=== PATIENT | male | born 1975 | race Caucasian/White ===

== ENCOUNTER 2017-08-14 05:36 | Observation (INO) | payer BC ==
[2017-08-11 12:21] LABS: BASOPHILS % (AUTO) 0.7 % (0-1); EOSINOPHILS # (AUTO) 0.1 X10'3 (0-0.9); EOSINOPHILS % (AUTO) 2.1 % (0-6); MEAN CORPUSCULAR HEMOGLOBIN 31.6 PG (27.0-31.0); MEAN CORPUSCULAR HGB CONC 34.8 % (33.0-36.5); MEAN CORPUSCULAR VOLUME 90.8 FL (78-98); MEAN PLATELET VOLUME 10.3 FL (7.4-10.4); MONOCYTES # (AUTO) 0.4 X10'3 (0-0.9); MONOCYTES % (AUTO) 5.6 % (2-12); NEUTROPHILS # (AUTO) 3.8 X10'3 (1.8-7.7); NEUTROPHILS % (AUTO) 60.6 % (42-75); PRE OP HEMATOCRIT 43.5 % (42.0-52.0); PRE OP HEMOGLOBIN 15.1 g/dL (14.0-17.9); PRE OP PLATELET COUNT 172 X10'3 (140-440); RED BLOOD COUNT 4.79 X10'6 (4.70-6.10); RED CELL DISTRIBUTION WIDTH 14.1 % (11.5-14.5)
[2017-08-11 12:43] LABS: ALBUMIN 4.3 G/DL (3.4-5.0); ALBUMIN/GLOBULIN RATIO 1.3 (1.1-1.5); ALKALINE PHOSPHATASE 63 IU/L (46-116); BLOOD UREA NITROGEN 13 MG/DL (7-18); BUN/CREATININE RATIO 14.4 (5.4-32.0); CALCIUM 9.2 MG/DL (8.5-10.1); CHLORIDE 105 MMOL/L (99-107); PRE OP ALT 67 U/L (30-65); PRE OP ANION GAP 5 (8-16); PRE OP AST 29 U/L (10-37); PRE OP BILIRUB, TOTAL 0.6 MG/DL (0.0-1.0); PRE OP GLUCOSE 92 MG/DL (70-104); PRE OP POTASSIUM 4.1 MMOL/L (3.4-5.1); PRE OP SODIUM 141 MMOL/L (135-145); TOTAL CARBON DIOXIDE 30.8 MMOL/L (24-32); TOTAL PROTEIN 7.7 G/DL (6.4-8.2); eGFR > 90 ML/MIN
[2017-08-14] VITALS (21 sets, daily range): BP systolic 108–160; BP diastolic 55–98
[~2017-08-14] VITALS: Ht 182.9 cm; Wt 183.7 kg
[~2017-08-14 05:36] MED LIST: ATOR10TA87 PO; CITA-311 PO; L-THROXINE PO; famotidine 20mg tablet PO ONE; ringers solution, lacted 1,000 ML IV SCH
[2017-08-14] MEDS ORDERED: LIDOcaine 1% (10mg/ml) 2ml vial ONE (05:49)
[2017-08-14] MEDS ORDERED: BUPIVAcaine/PF 2.5 mg/ml (0.25%) 30ml vial ONE (07:04)
[2017-08-14] MEDS ORDERED: VANCOMYCIN INJ 1000 MG in NORMAL SALINE 250ml IV.SOLN IV ONE (07:05)
[2017-08-14] MEDS ORDERED: cefazolin/dext.iso 2gm/50ml 50 ML IV ONE (07:05)
[2017-08-14] MEDS ORDERED: sevoflurane 250ml liquid IH ONE (07:17)
[2017-08-14] MEDS ORDERED: ondansetron/PF 4mg/2ml inj ONE (07:17)
[2017-08-14] MEDS ORDERED: cloNIDine hcl/PF 100mcg/ml inj ONE (07:22)
[2017-08-14] MEDS ORDERED: fentaNYL/PF 50MCG/1 ML 2ML syringe ONE (07:24)
[2017-08-14] MEDS ORDERED: midazolam 2 mg/2 ml injection ONE ×2 (07:24→07:48)
[2017-08-14] MEDS ORDERED: ROPIVAcaine 0.5% (5mg/ml) 30ml vial ONE (07:25)
[2017-08-14] MEDS ORDERED: propofol inj 20 ML IV ONE ×2 (07:26→07:29)
[2017-08-14] MEDS ORDERED: rocuronium 10mg/ml inj IV ONE (07:26)
[2017-08-14] MEDS ORDERED: LIDOcaine 2% (20mg/ml) 5ml vial ONE (07:26)
[2017-08-14] MEDS ORDERED: ringers solution, lacted 1,000 ML IV SCH (09:32)
[2017-08-14] MEDS ORDERED: meperidine/PF 25mg/ml syringe IV PRN ×3 (09:35)
[2017-08-14] MEDS ORDERED: ondansetron/PF 4mg/2ml inj IV PRN ×2 (09:35→10:35)
[2017-08-14] MEDS ORDERED: proCHLORperazine 10 MG/2 ml inj IV PRN (09:35)
[2017-08-14] MEDS ORDERED: morphine 2 MG/ML inj. syringe IV PRN ×2 (09:35)
[2017-08-14] MEDS ORDERED: morphine 5 MG/ML injection IV PRN ×2 (09:37→09:38)
[2017-08-14] MEDS ORDERED: dexamethasone sod phosphate 4mg/ml inj. ONE (10:05)
[2017-08-14] MEDS ORDERED: diphenhydrAMINE 25mg capsule PO PRN ×2 (10:35)
[2017-08-14] MEDS ORDERED: bisacodyl 10mg suppository rectal RC PRN (10:35)
[2017-08-14] MEDS ORDERED: magnesium hydroxide 30ml (MOM) UD suspension PO PRN (10:35)
[2017-08-14] MEDS ORDERED: NORMAL SALINE IV ONE (10:35)
[2017-08-14] MEDS ORDERED: HYDROmorphone 1 mg/ml syringe IV PRN ×2 (10:35)
[2017-08-14] MEDS ORDERED: HYDROcodone/acetaminophen 10/325mg tab PO PRN (10:35)
[2017-08-14] MEDS ORDERED: acetaminophen 325mg tablet PO PRN ×2 (10:35)
[2017-08-14] MEDS ORDERED: TRANEXAMIC ACID IV ONE (10:35)
[2017-08-14] MEDS ORDERED: ketorolac trometh. 30mg/ml inj. IV ONE (11:30)
[2017-08-14] MEDS: ketorolac trometh. 30mg/ml inj. IV SCH ×2 (13:43→19:57)
[2017-08-14] MEDS: potassium cl 20mEq in 1/2 NS 1,000 ML IV SCH (13:45)
[2017-08-14] MEDS: cefazolin 1gm/NS 100mL 100 ML IV SCH (15:47)
[2017-08-14] MEDS: HYDROcodone/acetaminophen 10/325mg tab PO PRN ×2 (17:51→21:52)
[2017-08-14] MEDS ORDERED: vancomycin/NS 1 GM ADD-VANTAGE 250 ML IV SCH (20:00)
[2017-08-14] MEDS ORDERED: sennosides 8.6mg tablet PO SCH (21:00)
[2017-08-15] MEDS: cefazolin 1gm/NS 100mL 100 ML IV SCH (00:21)
[2017-08-15] MEDS: potassium cl 20mEq in 1/2 NS 1,000 ML IV SCH ×3 (00:21→10:31)
[2017-08-15 02:00] VITALS: BP 125/69
[2017-08-15] MEDS: ketorolac trometh. 30mg/ml inj. IV SCH ×2 (02:19→08:06)
[2017-08-15 06:00] VITALS: BP 119/88
[2017-08-15] MEDS: HYDROcodone/acetaminophen 10/325mg tab PO PRN ×2 (06:09→10:57)
[2017-08-15 06:32] LABS: BASOPHILS % (AUTO) 0.3 % (0-1); EOSINOPHILS # (AUTO) 0.2 X10'3 (0-0.9); EOSINOPHILS % (AUTO) 1.6 % (0-6); HEMATOCRIT 40.2 % (42.0-52.0); HEMOGLOBIN 13.8 g/dl (14.0-17.9); LYMPHOCYTES # (AUTO) 1.1 X10'3 (1.1-4.8); LYMPHOCYTES % (AUTO) 8.5 % (21-51); MEAN CORPUSCULAR HGB CONC 34.4 % (33.0-36.5); MEAN PLATELET VOLUME 10.5 FL (7.4-10.4); MONOCYTES # (AUTO) 0.5 X10'3 (0-0.9); MONOCYTES % (AUTO) 4.1 % (2-12); NEUTROPHILS # (AUTO) 10.9 X10'3 (1.8-7.7); NEUTROPHILS % (AUTO) 85.5 % (42-75); PLATELET COUNT 173 X10'3 (140-440); RED BLOOD COUNT 4.32 X10'6 (4.70-6.10); RED CELL DISTRIBUTION WIDTH 14.3 % (11.5-14.5); WHITE BLOOD COUNT 12.7 X10'3 (4.5-11.0)
[2017-08-15 07:08] LABS: ANION GAP 10 (8-16); CHLORIDE 104 MMOL/L (99-107); POTASSIUM 4.3 MMOL/L (3.5-5.1); SODIUM 141 MMOL/L (135-145); TOTAL CARBON DIOXIDE 26.8 MMOL/L (24-32)
[2017-08-15] MEDS ORDERED: levoTHYROXINE 75mcg tablet PO SCH (07:30)
[2017-08-15 07:48] LABS: LARGE PLATELETS FEW; PLATELET ESTIMATE NORMAL
[2017-08-15 08:00] VITALS: BP 119/88
[2017-08-15] MEDS ORDERED: CITALOpram 10mg tablet PO SCH (08:00)
[2017-08-15] MEDS ORDERED: atorvastatin 10mg tablet PO SCH (08:00)
[2017-08-15] MEDS ORDERED: aspirin 325mg tablet PO SCH (08:30)
== END 2017-08-15 12:15 | disposition home or self-care (01) ==
LOC: PAS 05:36 → ORTHO 4S 10:31 → UNDOADMOB 12:41
PROVIDERS: ADMIT Orthopaedic Surgery; ATTEND Orthopaedic Surgery
DX: M75.121 Complete rotator cuff tear or rupture of right shoulder, not specified as traumatic (principal); M75.21 Bicipital tendinitis, right shoulder; S43.431A Superior glenoid labrum lesion of right shoulder, initial encounter; M25.511 Pain in right shoulder; E66.01 Morbid (severe) obesity due to excess calories; G89.29 Other chronic pain; X58.XXXA Exposure to other specified factors, initial encounter; Y93.89 Activity, other specified; Y92.89 Other specified places as the place of occurrence of the external cause; Y99.8 Other external cause status
CPT/HCPCS: 15271; 29827; 29828; 36415; 80051; 80053; 85025; 87070; 93005; 96365; 96366; 96367; 96375; 96376; 97116; 97162; 97530; C1713; C1776; G0378; J0690; J0735; J1100; J1885; J2001; J2250; J2405; J2704; J2795; J3010; J3370; J3490; J7030; J7120; A7000

== ENCOUNTER 2020-06-28 19:02 | Inpatient (IN) | payer BC ==
[~2020-06-28] VITALS: Ht 182.9 cm; Wt 180.9 kg
[~2020-06-28 19:02] MED LIST changes: -famotidine 20mg tablet PO ONE; -ringers solution, lacted 1,000 ML IV SCH
[2020-06-28 19:44] LABS: BASOPHILS # (AUTO) 0.1 X10'3 (0-0.2); BASOPHILS % (AUTO) 0.9 % (0-1); EOSINOPHILS # (AUTO) 0.1 X10'3 (0-0.9); EOSINOPHILS % (AUTO) 1.8 % (0-6); HEMATOCRIT 42.4 % (42.0-52.0); HEMOGLOBIN 14.7 g/dl (14.0-17.9); LYMPHOCYTES # (AUTO) 1.8 X10'3 (1.1-4.8); LYMPHOCYTES % (AUTO) 22.8 % (21-51); MEAN CORPUSCULAR HGB CONC 34.6 g/dL (33.0-36.5); MEAN CORPUSCULAR VOLUME 92.4 FL (78-98); MONOCYTES # (AUTO) 0.5 X10'3 (0-0.9); MONOCYTES % (AUTO) 6.3 % (2-12); NEUTROPHILS # (AUTO) 5.5 X10'3 (1.8-7.7); NEUTROPHILS % (AUTO) 68.2 % (42-75); PLATELET COUNT 203 X10'3 (140-440); RED BLOOD COUNT 4.59 X10'6 (4.70-6.10); RED CELL DISTRIBUTION WIDTH 12.9 % (11.5-14.5); WHITE BLOOD COUNT 8.1 X10'3 (4.5-11.0)
[2020-06-28 19:58] LABS: ALANINE AMINOTRANSFERASE 41 U/L (12-78); ALKALINE PHOSPHATASE 89 IU/L (46-116); ANION GAP 5 (8-16); ASPARTATE AMINO TRANSFERASE 21 U/L (10-37); BILIRUBIN,TOTAL 0.8 MG/DL (0.1-1.0); BLOOD UREA NITROGEN 12 MG/DL (7-18); CHLORIDE 103 MMOL/L (99-107); CREATININE 0.92 MG/DL (0.60-1.10); GLUCOSE 102 MG/DL (70-104); POTASSIUM 3.9 MMOL/L (3.5-5.1); SODIUM 138 MMOL/L (135-145); TOTAL CARBON DIOXIDE 29.7 MMOL/L (24-32); TOTAL PROTEIN 7.9 G/DL (6.4-8.2); eGFR 89 ML/MIN
[2020-06-28 20:01] LABS: AMYLASE 38 U/L (25-115); LIPASE 79 U/L (73-393); TROPONIN I < 0.04 NG/ML (0.0-0.05)
[2020-06-28] MEDS ORDERED: ketorolac tromethamine 15mg/ml inj. IV ONE (22:40)
[2020-06-28] MEDS ORDERED: morphine 4 MG/ML inj SYRINge IV ONE (23:40)
[2020-06-28] MEDS ORDERED: ondansetron/PF 4mg/2ml inj IV ONE (23:40)
[2020-06-29] VITALS (14 sets, daily range): BP systolic 105–147; BP diastolic 54–99
[2020-06-29] MEDS ORDERED: [UNRECOGNIZED DRUG - OTHER] PO (00:03)
[2020-06-29 00:34] LABS: CLARITY,URINE CLEAR (Clear); COLOR,URINE YELLOW (Yellow); GLUCOSE, URINE NEGATIVE (Neg); KETONES,URINE NEGATIVE (Neg); LEUKOCYTE ESTERASE ,URINE NEGATIVE (Neg); NITRITES, URINE NEGATIVE (Neg); OCCULT BLOOD,URINE NEGATIVE (Neg); PROTEIN,URINE NEGATIVE (Neg); UROBILINOGEN,URINE 0.2 E.U/dL (0.2-1.0)
[2020-06-29 00:43] LABS: UA COLLECTION TYPE CLN CATCH MIDSTREAM
--- NOTE | 2020-06-29 00:57 | NUR ---
pt to be admitted, awaiting hospitalistist
--- NOTE | 2020-06-29 01:58 | NUR ---
dr simental at bedside to admit patient. pt in airborne isolation precautions for covid +
[2020-06-29] MEDS ORDERED: potassium Cl 40MEQ/1/2NS 520ml 520 ML IV PRN ×2 (02:30)
[2020-06-29] MEDS: normal saline 1000ml 1,000 ML IV SCH ×3 (02:30→22:30)
[2020-06-29] MEDS ORDERED: morphine 2 MG/ML inj. syringe IV PRN ×2 (02:30→16:05)
[2020-06-29] MEDS ORDERED: ondansetron/PF 4mg/2ml inj IV PRN ×3 (02:30→20:45)
--- NOTE | 2020-06-29 03:30 | NUR ---
RT at bedside to eval and placed pt on cpap. Pt given warm blanket. vss.
--- NOTE | 2020-06-29 05:46 | NUR ---
pt awaiting ipa. HE reports unknown if he is going to surgery today. NPO PER ORDERS. current vss. pain to abdomen is 4 out of 10.
[2020-06-29] MEDS: levoTHYROXINE 100mcg tablet PO SCH (06:58)
--- NOTE | 2020-06-29 07:58 | NUR ---
Spoke to Dr. Adams, who states that if pt is no longer infectious if COVID infection was over one month ago(05/24/20).
[2020-06-29] MEDS: CITALOpram 10mg tablet PO SCH (08:00)
[2020-06-29] MEDS: K and/or MAG REPLACEMENT MC SCH ×2 (08:00→20:00)
[2020-06-29] MEDS ORDERED: piperacillin/tazo 3.375gm/50ml 50 ML IV SCH (08:00)
[2020-06-29] MEDS: piperacillin/tazo 3.375gm/50ml 50 ML IV SCH ×3 (08:36→23:49)
[2020-06-29] MEDS: morphine 2 MG/ML inj. syringe IV PRN ×3 (08:52→23:57)
[2020-06-29 14:40] LABS: PARTIAL THROMBOPLASTIN TIME 28 SECONDS (22-32)
[2020-06-29] MEDS ORDERED: INDOCYANINE GREEN 25 MG/10 ML VIAL IV ONE (15:40)
[2020-06-29] MEDS ORDERED: meperidine/PF 25mg/ml syringe IV PRN ×2 (16:05)
[2020-06-29] MEDS ORDERED: morphine 4 MG/ML inj SYRINge IV PRN (16:05)
[2020-06-29] MEDS ORDERED: ringers solution, lacted 1,000 ML IV SCH (16:05)
[2020-06-29] MEDS ORDERED: proCHLORperazine 10 MG/2 ml inj IV PRN (16:05)
[2020-06-29] MEDS ORDERED: midazolam 2 mg/2 ml injection ONE (17:13)
[2020-06-29] MEDS ORDERED: BUPIVAcaine/PF 2.5 mg/ml (0.25%) 30ml vial ONE (17:13)
[2020-06-29] MEDS ORDERED: fentaNYL /PF 50mcg/ml 5ml ampule ONE (17:13)
[2020-06-29] MEDS ORDERED: rocuronium 10mg/ml inj IV ONE ×2 (17:23→18:04)
[2020-06-29] MEDS ORDERED: propofol inj 20 ML IV ONE ×2 (17:32)
[2020-06-29] MEDS ORDERED: ondansetron/PF 4mg/2ml inj ONE (17:32)
--- NOTE | 2020-06-29 18:37 | NUR ---
Problems reprioritized. Patient report given, questions answered & plan of care reviewed with Rebekah PANIAGUA, patient still in surgery .
[2020-06-29] MEDS ORDERED: morphine 4 MG/ML inj SYRINge ONE (19:01)
--- NOTE | 2020-06-29 20:21 | NUR ---
Received from OR via , accompanied by Anesthesiologist DR BAUTISTA and report given by Anesthesiolgist. PT OPENING EYES TO VOICE, SKIN WARM AND PINK, MOVING EXT X 4, ABD HAS 4 BA'S CD, 4X4'S AT IRINA INSERTION SITE, SANQ DRAINAGE, SCD'S, RIGHT WRIST 20G WITH LR 100ML/HR, VSS.
[2020-06-29] MEDS: meperidine/PF 25mg/ml syringe IV PRN ×2 (20:49→21:07)
--- NOTE | 2020-06-29 21:21 | NUR ---
Report called to receiving nurse. Transferred via BED Belongings . Special Issues communicated to receiving nurse REAGAN PANIAGUA. PT MEETS DISCHARGE CRITERIA, VSS, PAIN CONTROLLED, MUNIRA WATER, IRINA EMPTIED (50MLS), BA'S CD, SCD'S, DISCUSSED NEED FOR PT TO USE HIS CPAP WHEN HE ARRIVES ON THE FLOOR. SATS 91% WITH NC 3 L. RECIEVING RN STATED HE HAD HIS CPAP IN HIS ROOM.
--- NOTE | 2020-06-29 21:30 | NUR ---
Patient in room [facility]. I have received report from Recovery room nurse Wanda PANIAGUA and had the opportunity to ask questions and assume patient care. Pt alert and oriented, drowsy and inquiring if anyone had spoken to his . VSS, NC 2L, 4 lap sites bandaids CDI, IRINA on right side of abdo with sang drainage, hypoactive BS, SCDs in use. Addendum: 06/29/20 at 3505 by Rebekah Bowman RN Amended: Links added.
--- NOTE | 2020-06-29 23:00 | NUR ---
On FRI 11:01pm 06/29/20 Nursing (Rebekah Bowman) wrote Needing pts IV fluids, D5 2w 20K- Thanks Rebekah. Addendum: 06/30/20 at 0506 by Rebekah Bowman RN Amended: Links added.
[2020-06-30] VITALS: BP 104/66
[2020-06-30 00:03] VITALS: BP 116/67
[2020-06-30 01:00] VITALS: BP 115/63
[2020-06-30] MEDS: potassium CL 20mEq in D5-1/2NS 1,000 ML IV SCH ×4 (04:45→20:44)
--- NOTE | 2020-06-30 05:01 | NUR ---
On SAT 5:00am 06/30/20 Nursing (Rebekah Bowman) wrote Needing pts IVF D5w1/2NS 20K- Thanks Rebekah Addendum: 06/30/20 at 0506 by Rebekah Bowman RN Amended: Links added.
[2020-06-30 06:22] LABS: BASOPHILS % (AUTO) 0.2 % (0-1); EOSINOPHILS % (AUTO) 0 % (0-6); HEMOGLOBIN 14.1 g/dl (14.0-17.9); LYMPHOCYTES # (AUTO) 0.5 X10'3 (1.1-4.8); LYMPHOCYTES % (AUTO) 5.5 % (21-51); MEAN CORPUSCULAR HEMOGLOBIN 31.8 PG (27.0-31.0); MEAN CORPUSCULAR HGB CONC 34.4 g/dL (33.0-36.5); MEAN CORPUSCULAR VOLUME 92.6 FL (78-98); MEAN PLATELET VOLUME 9.1 FL (7.4-10.4); MONOCYTES # (AUTO) 0.3 X10'3 (0-0.9); MONOCYTES % (AUTO) 3.4 % (2-12); NEUTROPHILS # (AUTO) 8.8 X10'3 (1.8-7.7); NEUTROPHILS % (AUTO) 90.9 % (42-75); PLATELET COUNT 177 X10'3 (140-440); RED BLOOD COUNT 4.43 X10'6 (4.70-6.10); RED CELL DISTRIBUTION WIDTH 12.8 % (11.5-14.5); WHITE BLOOD COUNT 9.7 X10'3 (4.5-11.0)
--- NOTE | 2020-06-30 06:35 | NUR ---
Problems reprioritized. Patient report given, questions answered & plan of care reviewed with Ifeoma PANIAGUA. Addendum: 06/30/20 at 0636 by Rebekah Bowman RN Amended: Links added.
--- NOTE | 2020-06-30 06:45 | NUR ---
Patient in room [facility]. I have received report from Rebekah PANIAGUA and had the opportunity to ask questions and assume patient care.
[2020-06-30 07:00] VITALS: BP 121/72
[2020-06-30 07:01] LABS: ALANINE AMINOTRANSFERASE 80 U/L (12-78); ALBUMIN 3.4 G/DL (3.4-5.0); ALBUMIN/GLOBULIN RATIO 0.9 (1.1-1.5); ALKALINE PHOSPHATASE 84 IU/L (46-116); ANION GAP 7 (8-16); ASPARTATE AMINO TRANSFERASE 64 U/L (10-37); BILIRUBIN,TOTAL 0.7 MG/DL (0.1-1.0); BLOOD UREA NITROGEN 11 MG/DL (7-18); BUN/CREATININE RATIO 11.7 (5.4-32.0); CALCIUM 8.9 MG/DL (8.5-10.1); CHLORIDE 104 MMOL/L (99-107); CREATININE 0.94 MG/DL (0.60-1.10); GLUCOSE 127 MG/DL (70-104); POTASSIUM 4.6 MMOL/L (3.5-5.1); SODIUM 140 MMOL/L (135-145); TOTAL CARBON DIOXIDE 29.1 MMOL/L (24-32); TOTAL PROTEIN 7.2 G/DL (6.4-8.2); eGFR 86 ML/MIN
[2020-06-30] MEDS: levoTHYROXINE 100mcg tablet PO SCH (07:52)
[2020-06-30] MEDS: CITALOpram 10mg tablet PO SCH (07:52)
[2020-06-30] MEDS: piperacillin/tazo 3.375gm/50ml 50 ML IV SCH ×3 (07:53→23:23)
[2020-06-30] MEDS: morphine 2 MG/ML inj. syringe IV PRN (07:54)
[2020-06-30] MEDS: K and/or MAG REPLACEMENT MC SCH ×2 (08:00→20:00)
[2020-06-30] MEDS: normal saline 1000ml 1,000 ML IV SCH ×2 (08:30→18:30)
[2020-06-30] MEDS: HYDROcodone/acetaminophen 10/325mg tab PO PRN ×3 (09:38→20:43)
[2020-06-30] MEDS ORDERED: ketorolac trometh. 30mg/ml inj. IV ONE (10:45)
[2020-06-30 11:00] VITALS: BP 111/63
[2020-06-30] MEDS ORDERED: morphine 4 MG/ML inj SYRINge IV PRN (12:15)
--- NOTE | 2020-06-30 18:52 | NUR ---
Patient in room [facility]. I have received report from Rebekah PANIAGUA and had the opportunity to ask questions and assume patient care.
[2020-06-30 20:00] VITALS: BP 117/78
[2020-06-30] MEDS: lactobacillus rhamnosus 10,000 MMU CELLS/CAPSULE PO SCH (20:11)
[2020-07-01] MEDS: normal saline 1000ml 1,000 ML IV SCH (04:30)
[2020-07-01] MEDS: HYDROcodone/acetaminophen 10/325mg tab PO PRN ×3 (05:14→15:09)
[2020-07-01 06:37] LABS: BASOPHILS % (AUTO) 0.5 % (0-1); EOSINOPHILS # (AUTO) 0.1 X10'3 (0-0.9); EOSINOPHILS % (AUTO) 1.8 % (0-6); HEMATOCRIT 37.5 % (42.0-52.0); LYMPHOCYTES # (AUTO) 2.2 X10'3 (1.1-4.8); LYMPHOCYTES % (AUTO) 27.1 % (21-51); MEAN CORPUSCULAR HEMOGLOBIN 32.3 PG (27.0-31.0); MEAN CORPUSCULAR HGB CONC 34.8 g/dL (33.0-36.5); MEAN CORPUSCULAR VOLUME 92.8 FL (78-98); MEAN PLATELET VOLUME 8.9 FL (7.4-10.4); MONOCYTES # (AUTO) 0.5 X10'3 (0-0.9); MONOCYTES % (AUTO) 6.1 % (2-12); NEUTROPHILS # (AUTO) 5.2 X10'3 (1.8-7.7); NEUTROPHILS % (AUTO) 64.5 % (42-75); PLATELET COUNT 172 X10'3 (140-440); RED BLOOD COUNT 4.04 X10'6 (4.70-6.10)
[2020-07-01 06:59] LABS: ALANINE AMINOTRANSFERASE 68 U/L (12-78); ALBUMIN 3.1 G/DL (3.4-5.0); ALBUMIN/GLOBULIN RATIO 0.9 (1.1-1.5); ALKALINE PHOSPHATASE 71 IU/L (46-116); ANION GAP 2 (8-16); ASPARTATE AMINO TRANSFERASE 42 U/L (10-37); BILIRUBIN,TOTAL 0.5 MG/DL (0.1-1.0); BLOOD UREA NITROGEN 10 MG/DL (7-18); BUN/CREATININE RATIO 11.2 (5.4-32.0); CALCIUM 8.8 MG/DL (8.5-10.1); CHLORIDE 106 MMOL/L (99-107); CREATININE 0.89 MG/DL (0.60-1.10); GLUCOSE 104 MG/DL (70-104); POTASSIUM 3.6 MMOL/L (3.5-5.1); SODIUM 139 MMOL/L (135-145); TOTAL PROTEIN 6.5 G/DL (6.4-8.2); eGFR > 90 ML/MIN
--- NOTE | 2020-07-01 07:00 | NUR ---
Patient in room [facility]. I have received report from Rebekah Marie RN and had the opportunity to ask questions and assume patient care.
[2020-07-01 08:00] VITALS: BP 95/46
[2020-07-01] MEDS: K and/or MAG REPLACEMENT MC SCH (08:00)
[2020-07-01] MEDS: CITALOpram 10mg tablet PO SCH (09:27)
[2020-07-01] MEDS: lactobacillus rhamnosus 10,000 MMU CELLS/CAPSULE PO SCH (09:27)
[2020-07-01] MEDS: levoTHYROXINE 100mcg tablet PO SCH (09:32)
[2020-07-01] MEDS: piperacillin/tazo 3.375gm/50ml 50 ML IV SCH (09:33)
[2020-07-01 12:00] VITALS: BP 136/84
[2020-07-01] MEDS ORDERED: HYDR-4353 PO (12:51)
--- NOTE | 2020-07-01 15:15 | NUR ---
Khadra De La Fuente RN assisted with pt's discharge process.
--- NOTE | 2020-07-01 15:45 | NUR ---
Callie, RN, DC'd IRINA drain per MD order. Pt irais well, per RN.
--- NOTE | 2020-07-01 15:57 | NUR ---
Iv removed, canula intact, discharge instructions discussed, paperwork signed. pt brought down to front in wheelchair, picking up pt in private vehicle.
--- NOTE | 2020-07-01 15:59 | NUR ---
Dr. Gasca stated pt not to return to work until after f/u appt w/ Dr. Weiner 1-2 weeks. "Excuse from Work or School" form was provided to pt.
== END 2020-07-01 16:00 | disposition home or self-care (01) | DRG 417 ==
LOC: ER 19:02 → ED HOLD 06-29 02:28 → SUR 3N 06-29 12:15 → PACU 06-29 16:10 → SUR 3N 06-29 21:30
PROVIDERS: ADMIT Internal Medicine; ATTEND Internal Medicine
PROC: 8E0W4CZ Robotic Assisted Procedure of Trunk Region, Percutaneous Endoscopic Approach (ICD-10-PCS; 2020-06-29)
PROC: 5A09357 Assistance with Respiratory Ventilation, Less than 24 Consecutive Hours, Continuous Positive Airway Pressure (ICD-10-PCS; 2020-06-29)
PROC: 0FT44ZZ Resection of Gallbladder, Percutaneous Endoscopic Approach (ICD-10-PCS; principal; 2020-06-29 17:02)
DX: K80.00 Calculus of gallbladder with acute cholecystitis without obstruction (principal); U07.1 COVID-19; Z68.43 Body mass index [BMI] 50.0-59.9, adult; E78.00 Pure hypercholesterolemia, unspecified; E03.9 Hypothyroidism, unspecified; F32.9 Major depressive disorder, single episode, unspecified; E66.01 Morbid (severe) obesity due to excess calories; E78.5 Hyperlipidemia, unspecified; G47.33 Obstructive sleep apnea (adult) (pediatric); Z79.899 Other long term (current) drug therapy
CPT/HCPCS: 36415; 71045; 76700; 80053; 81003; 82150; 82948; 83690; 84443; 84484; 85025; 85610; 85730; 87081; 87635; 93005; 94660; 94760; 96374; 96375; 99285; A4215; A4618; A6223; A6402; A7000; C9803; G0378; J1885; J2175; J2250; J2270; J2405; J2543; J2704; J3010; J3480; J3490; J7030; J7120

== ENCOUNTER 2021-04-08 07:11 | Emergency (ER) | payer BC, OTHER ==
[~2021-04-08] VITALS: Ht 182.9 cm; Wt 177.3 kg
[~2021-04-08 07:11] MED LIST changes: +HYDR-4353 PO; -L-THROXINE PO; +[UNRECOGNIZED DRUG - OTHER] PO
[2021-04-08 07:20] VITALS: BP 155/77
[2021-04-08] MEDS ORDERED: ONDA4TAB6 PO ×2 (08:40→08:43)
[2021-04-08] MEDS ORDERED: HYDR-3964 PO (08:40)
[2021-04-08] MEDS ORDERED: HYDR-3972 PO (08:43)
[2021-04-08] MEDS ORDERED: HYDROcodone/acetaminophen 10/325mg tab PO ONE (08:45)
[2021-04-08] MEDS ORDERED: ondansetron 4mg rapidly disintigrating tab PO ONE (08:45)
--- NOTE | 2021-04-08 10:11 | NUR ---
DR. Lua SEEN AND TREATED PT. NURSING CHARTING NOT DONE.
[2021-04-18] MEDS ORDERED: HYDR-3972 PO (13:42)
[2021-04-18] MEDS ORDERED: ONDA4TAB6 PO (13:42)
== END 2021-04-08 10:12 | disposition home or self-care (01) ==
LOC: ER 07:12
DX: S92.354A Nondisplaced fracture of fifth metatarsal bone, right foot, initial encounter for closed fracture (principal); S93.401A Sprain of unspecified ligament of right ankle, initial encounter; E78.00 Pure hypercholesterolemia, unspecified; Z87.81 Personal history of (healed) traumatic fracture; Z79.899 Other long term (current) drug therapy; W18.09XA Striking against other object with subsequent fall, initial encounter; Y93.89 Activity, other specified; Y92.89 Other specified places as the place of occurrence of the external cause; Y99.8 Other external cause status
CPT/HCPCS: 29515; 73630; 99283

== ENCOUNTER 2023-06-25 14:29 | Emergency (ER) | payer SELFPAY ==
[~2023-06-25] VITALS: Ht 182.9 cm; Wt 159.9 kg
[~2023-06-25 14:29] MED LIST changes: +HYDR-3972 PO; -HYDR-4353 PO; +ONDA4TAB6 PO
[2023-06-25 15:07] LABS: BILIRUBIN,URINE SMALL (Neg); CLARITY,URINE SLIGHTLY CLOUDY (Clear); COLOR,URINE YELLOW (Yellow); GLUCOSE, URINE NEGATIVE (Neg); KETONES,URINE >=80 mg/dl (Neg); LEUKOCYTE ESTERASE ,URINE NEGATIVE (Neg); NITRITES, URINE NEGATIVE (Neg); OCCULT BLOOD,URINE LARGE (Neg); PROTEIN,URINE 100 mg/dl (Neg)
[2023-06-25 15:24] LABS: UA COLLECTION TYPE CLN CATCH MIDSTREAM
[2023-06-25 15:27] LABS: BACTERIA,URINE NONE SEEN /HPF (Neg); MUCUS STRANDS FEW /LPF (Neg); SQUAMOUS EPITHELIAL CELL,UR FEW /LPF (FEW); WBC,URINE 0-4 /HPF (0-4)
[2023-06-25 16:02] LABS: BASOPHILS % (AUTO) 0.2 % (0-1); EOSINOPHILS % (AUTO) 0.1 % (0-6); HEMATOCRIT 51.8 % (42.0-52.0); HEMOGLOBIN 17.2 g/dl (14.0-17.9); LYMPHOCYTES # (AUTO) 0.7 X10'3 (1.1-4.8); LYMPHOCYTES % (AUTO) 5.6 % (21-51); MEAN CORPUSCULAR HEMOGLOBIN 32.3 PG (27.0-31.0); MEAN CORPUSCULAR HGB CONC 33.3 g/dL (33.0-36.5); MEAN CORPUSCULAR VOLUME 96.9 FL (78-98); MONOCYTES # (AUTO) 0.4 X10'3 (0-0.9); MONOCYTES % (AUTO) 2.8 % (2-12); NEUTROPHILS # (AUTO) 11.5 X10'3 (1.8-7.7); NEUTROPHILS % (AUTO) 91.3 % (42-75); PLATELET COUNT 169 X10'3 (140-440); RED BLOOD COUNT 5.34 X10'6 (4.70-6.10); RED CELL DISTRIBUTION WIDTH 15.4 % (11.5-14.5); WHITE BLOOD COUNT 12.6 X10'3 (4.5-11.0)
[2023-06-25 18:40] LABS: ALANINE AMINOTRANSFERASE 79 U/L (12-78); ALBUMIN 4.2 G/DL (3.4-5.0); ALBUMIN/GLOBULIN RATIO 1.1 (1.1-1.5); ALKALINE PHOSPHATASE 99 IU/L (46-116); ANION GAP 12 (8-16); ASPARTATE AMINO TRANSFERASE 36 U/L (10-37); BILIRUBIN,TOTAL 0.9 MG/DL (0.1-1.0); BLOOD UREA NITROGEN 12 MG/DL (7-18); BUN/CREATININE RATIO 11.1 (10.0-20.0); CALCIUM 9.4 MG/DL (8.5-10.1); CHLORIDE 99 MMOL/L (99-107); CREATININE 1.08 MG/DL (0.60-1.10); GLUCOSE 123 MG/DL (70-104); LIPASE 21 U/L (16-77); POTASSIUM 3.5 MMOL/L (3.5-5.1); SODIUM 140 MMOL/L (135-145); TOTAL CARBON DIOXIDE 28.8 MMOL/L (24-32); TOTAL PROTEIN 7.9 G/DL (6.4-8.2); eCRCL 91 ML/MIN; eGFR 73 ML/MIN
[2023-06-25 18:55] VITALS: BP 153/83; PULSE 61; RESP 16; TEMP 97.2; O2SAT 99
== END 2023-06-25 22:28 | disposition left against medical advice (07) ==
LOC: ER 14:30
DX: R11.0 Nausea (principal); Z53.21 Procedure and treatment not carried out due to patient leaving prior to being seen by health care provider
CPT/HCPCS: 36415; 80053; 81001; 83690; 85025; 99281; 99283

== ENCOUNTER 2023-10-05 08:33 | Outpatient (CLI) | payer OTHER | END 2023-10-05 23:59 | disposition home or self-care (01) | LOC: RAD 08:33 | PROVIDERS: ATTEND Podiatrist Foot & Ankle Surgery | DX: M79.671 Pain in right foot (principal) | CPT/HCPCS: 73630; 73700 ==